=== PATIENT | male | born 1945 | race Caucasian/White ===

== ENCOUNTER 2018-07-07 09:42 | Inpatient (IN) | payer OTHER ==
[2018-07-07 10:51] LABS: ADD MAN DIFF? NO
[2018-07-07 10:54] LABS: ABNORMAL IP MESSAGE 1; BASOPHILS % 0.5 % (0.0-2.0); EOSINOPHILS # 0.1 10^3/ul (0.0-0.5); EOSINOPHILS % 0.8 % (0.0-7.0); HEMATOCRIT 31.8 % (42.0-52.0); HEMOGLOBIN 10.7 g/dl (14.0-18.0); LYMPHOCYTES # 0.9 10^3/ul (0.8-2.9); LYMPHOCYTES % 9.7 % (15.0-51.0); MEAN CORPUSCULAR HEMOGLOBIN 25.3 pg (29.0-33.0); MEAN CORPUSCULAR HGB CONC 33.6 g/dl (32.0-37.0); MEAN CORPUSCULAR VOLUME 75.2 fl (82.0-101.0); MEAN PLATELET VOLUME 9.3 fl (7.4-10.4); MONOCYTE # 0.8 10^3/ul (0.3-0.9); MONOCYTES % 9.2 % (0.0-11.0); NEUTROPHIL # 6.9 10^3/ul (1.6-7.5); NEUTROPHILS % 79.5 % (39.0-77.0); PLATELET COUNT 331 10^3/UL (140-415); POSITIVE DIFF @See below; RED BLOOD COUNT 4.23 10^6/ul (4.70-6.10); RED CELL DISTRIBUTION WIDTH 24.1 % (11.5-14.5)
[2018-07-07 10:54] LABS: WHITE BLOOD COUNT 8.7 10^3/ul (4.8-10.8)
[2018-07-07 11:13] LABS: INR 1.44; PROTIME 17.8 Sec (11.9-14.9); PT RATIO 1.4
[2018-07-07 11:14] LABS: PARTIAL THROMBOPLASTIN TIME 38.3 Sec (23.0-35.0)
[2018-07-07 11:16] LABS: ALANINE AMINOTRANSFERASE 103 IU/L (13-69); ALBUMIN 3.7 g/dl (3.3-4.9); ALBUMIN/GLOBULIN RATIO 0.97; ALKALINE PHOSPHATASE 728 IU/L (42-121); ANION GAP 22 (5-13); ASPARTATE AMINO TRANSFERASE 224 IU/L (15-46); BILIRUBIN,INDIRECT 1.3 mg/dl (0-1.1); BILIRUBIN,TOTAL 4.7 mg/dl (0.2-1.3); BLOOD UREA NITROGEN 105 mg/dl (7-20); CALCIUM 10.4 mg/dl (8.4-10.2); CARBON DIOXIDE 17 mmol/L (21-31); CHLORIDE 97 mmol/L (97-110); CREATININE 2.66 mg/dl (0.61-1.24); GLUCOSE 97 mg/dl (70-220); LIPASE 385 U/L (23-300); POTASSIUM 5.1 mmol/L (3.5-5.1); SODIUM 136 mmol/L (135-144); TOTAL PROTEIN 7.5 g/dl (6.1-8.1)
[2018-07-07 11:17] LABS: AMMONIA < 9 umol/l (9-30)
[2018-07-07 12:27] LABS: ADD UMIC NO; UR ASCORBIC ACID NEGATIVE (NEGATIVE); UR BILIRUBIN (Dip) NEGATIVE (NEGATIVE); UR BLOOD (Dip) NEGATIVE (NEGATIVE); UR CLARITY CLEAR (CLEAR); UR COLOR YELLOW (YELLOW); UR GLUCOSE (Dip) 1+ mg/dL (NEGATIVE); UR KETONES (Dip) NEGATIVE (NEGATIVE); UR LEUKOCYTE ESTERASE (Dip) NEGATIVE Leu/ul (NEGATIVE); UR NITRITE (Dip) NEGATIVE (NEGATIVE); UR SPECIFIC GRAVITY (Dip) 1.045 (1.003-1.030); UR TOTAL PROTEIN (Dip) NEGATIVE (NEGATIVE); UR UROBILINOGEN (Dip) NEGATIVE (NEGATIVE)
[2018-07-07] MEDS: SOD CHLORIDE 0.9% 1,000 ML IV (14:07)
[2018-07-07] MEDS ORDERED: NACL 0.9% 3 ML SYG IV (14:30)
[2018-07-07] MEDS: SOD CHLORIDE 0.45% 1,000 ML IV (16:00)
[2018-07-07] MEDS: HYDROCODONE/APAP (5/325) TAB PO (20:33)
[2018-07-07] MEDS: HEPARIN 5,000 UNIT/1 ML VIAL SC (20:40)
[2018-07-08] MEDS: SOD CHLORIDE 0.45% 1,000 ML IV ×2 (03:21→16:41)
[2018-07-08 06:09] LABS: ADD MAN DIFF? NO
[2018-07-08 06:20] LABS: WHITE BLOOD COUNT 7.3 10^3/ul (4.8-10.8)
[2018-07-08 06:20] LABS: ABNORMAL IP MESSAGE 1; BASOPHILS % 0.5 % (0.0-2.0); EOSINOPHILS # 0.1 10^3/ul (0.0-0.5); EOSINOPHILS % 1.8 % (0.0-7.0); HEMATOCRIT 30.6 % (42.0-52.0); HEMOGLOBIN 10.3 g/dl (14.0-18.0); LYMPHOCYTES % 13.9 % (15.0-51.0); MEAN CORPUSCULAR HEMOGLOBIN 25.4 pg (29.0-33.0); MEAN CORPUSCULAR HGB CONC 33.7 g/dl (32.0-37.0); MEAN CORPUSCULAR VOLUME 75.6 fl (82.0-101.0); MEAN PLATELET VOLUME 9.4 fl (7.4-10.4); MONOCYTE # 0.9 10^3/ul (0.3-0.9); MONOCYTES % 11.9 % (0.0-11.0); NEUTROPHIL # 5.2 10^3/ul (1.6-7.5); NEUTROPHILS % 71.4 % (39.0-77.0); PLATELET COUNT 284 10^3/UL (140-415); POSITIVE DIFF @See below; RED BLOOD COUNT 4.05 10^6/ul (4.70-6.10); RED CELL DISTRIBUTION WIDTH 23.7 % (11.5-14.5)
[2018-07-08 06:39] LABS: ALANINE AMINOTRANSFERASE 102 IU/L (13-69); ALBUMIN 3.4 g/dl (3.3-4.9); ALBUMIN/GLOBULIN RATIO 0.97; ALKALINE PHOSPHATASE 644 IU/L (42-121); ANION GAP 18 (5-13); ASPARTATE AMINO TRANSFERASE 206 IU/L (15-46); BILIRUBIN,INDIRECT 1.1 mg/dl (0-1.1); BILIRUBIN,TOTAL 4.1 mg/dl (0.2-1.3); BLOOD UREA NITROGEN 106 mg/dl (7-20); CALCIUM 9.9 mg/dl (8.4-10.2); CARBON DIOXIDE 19 mmol/L (21-31); CHLORIDE 98 mmol/L (97-110); CREATININE 3.14 mg/dl (0.61-1.24); GLUCOSE 86 mg/dl (70-220); POTASSIUM 5.9 mmol/L (3.5-5.1); SODIUM 135 mmol/L (135-144); TOTAL PROTEIN 6.9 g/dl (6.1-8.1)
[2018-07-08 06:41] LABS: HEMOGLOBIN A1C 4.7 % (0-5.9)
[2018-07-08 06:48] LABS: IRON 37 ug/dl (35-150)
[2018-07-08 06:57] LABS: % IRON SATURATION 8 % SAT (22-52); TOTAL IRON BINDING CAPACITY 472 ug/dl (241-421)
[2018-07-08 07:29] LABS: FERRITIN 48.6 ng/ml (11.1-264.0)
[2018-07-08] MEDS ORDERED: CLOPIDOGREL 75 MG TAB PO (09:00)
[2018-07-08] MEDS: HEPARIN 5,000 UNIT/1 ML VIAL SC (09:00)
[2018-07-08] MEDS: SOD CHLORIDE 0.9% 1,000 ML IV (13:00)
== END 2018-07-08 20:20 | disposition hospice, home (50) | DRG 683 ==
LOC: E/R 09:42 → 2NE 14:26
DX: N17.9 Acute kidney failure, unspecified (principal); C78.7 Secondary malignant neoplasm of liver and intrahepatic bile duct; C78.00 Secondary malignant neoplasm of unspecified lung; R64 Cachexia; C80.1 Malignant (primary) neoplasm, unspecified; R19.7 Diarrhea, unspecified; K74.60 Unspecified cirrhosis of liver; I25.10 Atherosclerotic heart disease of native coronary artery without angina pectoris; I73.9 Peripheral vascular disease, unspecified; Z68.28 Body mass index [BMI] 28.0-28.9, adult; R62.7 Adult failure to thrive
CPT/HCPCS: 36415; 71045; 74176; 80053; 81003; 82140; 82728; 83036; 83540; 83690; 85025; 85610; 85730; 87075; 93005; 99285-25